=== PATIENT | male | born 1965 | race Hispanic/Latino ===

== ENCOUNTER 2021-12-09 15:27 | Emergency (ER) | payer BC ==
[2021-12-09] MEDS ORDERED: Ibuprofen 800 MG TAB ONE (15:56)
== END 2021-12-09 17:00 | disposition home or self-care (01) ==
LOC: ERS 15:27
DX: S50.01XA Contusion of right elbow, initial encounter (principal); S00.83XA Contusion of other part of head, initial encounter; Y04.8XXA Assault by other bodily force, initial encounter
CPT/HCPCS: 99283

== ENCOUNTER 2024-11-04 10:03 | Outpatient (CLI) | payer BC | END 2024-11-04 10:04 | disposition home or self-care (01) | LOC: BICRAD 10:03 | PROVIDERS: ATTEND Family Medicine | DX: M79.671 Pain in right foot (principal) ==